=== PATIENT | female | born 1960 | race Caucasian/White ===

== ENCOUNTER → 2016-09-02 | Outpatient (CLI) | payer BC | LOC: KOH-I 08-30 09:00 → US 07:33 | DX: R10.0 Acute abdomen (principal) | CPT/HCPCS: 76700 ==

== ENCOUNTER → 2021-06-22 | Outpatient (CLI) | payer BC | LOC: KOH-I 14:27 | DX: U07.1 COVID-19 (principal) | CPT/HCPCS: 71046 ==